=== PATIENT | male | born 2005 | race Caucasian/White ===

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

== ENCOUNTER 2024-02-19 00:32 | Emergency (ER) | payer BC, SELFPAY ==
[2024-02-19 00:32] VITALS: BP 132/93; PULSE 89; RESP 20; TEMP 36.6; O2SAT 100; BMI 32.1
--- NOTE | 2024-02-19 00:35 | ED_ITS ---
Discharge Plan Disposition Patient Disposition: Home, Self-Care Prescriptions Prescriptions: No Action amoxicillin [amoxicillin] 875 mg tablet 875 mg PO Q12H Qty: 20 0RF [id number]-[id number] [Bromfed DM] 2-30-10 mg/5 mL Syrup 5 ml PO Q6H PRN (Reason: Cough) Qty: 240 0RF Referrals Follow up/Referrals: Christian Perales MD [Primary Care Provider] - See instructions Activity Restrictions/Add. Instructions Additional Instructions/Restrictions: Please follow-up with your primary care provider. Please return to the emergency department if you develop any new or worsening symptoms or become concerned for your health. Clinical Impressions Clinical Impression: Headache Qualifiers: Headache chronicity pattern: acute headache Intractability: not intractable Print Language Print Language: Peruvian Discharge ED Provider: Nick Valenzuela General Adult HPI General Chief complaint: Dizziness Stated complaint: nosebleed, tightness in chest, lightheaded Time Seen by Provider: 02/19/24 00:35 History of Present Illness HPI narrative: 18-year-old male without significant past medical history presents for multiple complaints. Symptoms started about 2 and half hours ago. He first noticed some nausea. He then had a unilateral right sided nosebleed with spontaneous resolution. He then developed a headache, dizziness/weakness, chest tightness. He reports that he used to get nosebleeds a lot and his nose has been dry recently. He reports he does get headaches frequently but has not been formally diagnosed with migraines. He denies any other significant past medical history besides scoliosis. No recent fever. Did have a mild URI earlier. Reports headache is occipital, wraps around Related Data Previous Rx's ?Medication ?Instructions ?Recorded amoxicillin 875 mg tablet 875 mg PO Q12H #20 tabs 01/04/23 wrvbjtdjwqwslrv-awkorjagaqbqzob-[id number] 5 ml PO Q6H PRN Cough #240 mL 01/04/23 2 mg-30 mg-10 mg/5 mL oral syrup (Bromfed DM) Allergies Allergy/AdvReac Type Severity Reaction Status Date / Time No Known Allergies Allergy Verified 01/04/23 14:37 [facility] Disclaimer: The information contained in this section may have been updated after the patient was seen, as this information can be updated by other users. Medical History (Updated 02/19/24 @ 01:41 by Luz Elena Cardoso RN) Bronchitis Strep throat Exposure to COVID-19 virus Pharyngitis Sinusitis URI (upper respiratory infection) Canker sore Thumb sprain Viral upper respiratory illness Social History Smoking Status: Never smoker alcohol intake: never current occupational status: student Travel in the last 8 weeks: None Have you lived/traveled outside [place] in past 30 days?: No Contact w/someone who lives/traveled outside [place] past 30 days?: No Exposure to someone with infectious disease in past 14 days?: No Do you have a fever (greater than 100.4 F or 38 C)?: No Have you tested positive for COVID-19: No Exposed to someone with COVID-19 in past 14 days?: No Do you have a sore throat?: No Do you have a cough?: No Do you have any weakness?: Yes Do you have any diarrhea?: No Are you experiencing any unusual bleeding?: Yes Do you have any muscle aches/pain?: No Do you have any abdominal pain?: No Are you experiencing loss of taste or smell?: No ROS Obtained: Yes All systems reviewed & no additional complaints except as documented Physical Exam General General appearance: alert and in no apparent distress Head Head exam: atraumatic and normocephalic Eye Eye exam: Present normal appearance, PERRL and EOMI ENT ENT exam: Present normal oropharynx and normal external ear exam Neck Neck exam: Present normal inspection and full ROM Chest Chest inspection: Present normal inspection and symmetric chest wall rise; Absent tenderness Respiratory Respiratory exam: Present normal lung sounds bilaterally; Absent respiratory distress Cardiovascular Cardiovascular exam: Present regular rate and normal rhythm Abdominal Exam Abdominal exam: Present soft; Absent distention, tenderness or guarding Extremities Exam Extremities exam: Present normal inspection; Absent edema or joint swelling Back Exam Back exam: Present normal inspection; Absent tenderness Neurological Exam Neurological exam: Present alert and oriented X3; Absent motor sensory deficit Psychiatric Psychiatric exam: Present normal affect and normal mood Skin Skin exam: Present warm, dry and normal color Lymphatic Lymphatic Findings: no adenopathy Medical Decision Making Medical Records Medical records reviewed: Yes I reviewed the patient's medical records. Screening: Per USPSTF and CDC recommendations, given the prevalence of disease in our region, it is our hospital?s policy to screen for HIV and viral Hepatitis for all patients aged 18 and over and those with ongoing risk factors. Arnaldo Inquiry Pt receiving controlled substance: No Arnaldo was queried for this patient: No Vital Signs: 02/19/24 00:32 02/19/24 01:00 02/19/24 01:30 Temperature 97.9 F Temperature Source Oral Pulse Rate 85 69 Pulse Rate [Apical] 89 Respiratory Rate 20 15 15 Blood Pressure 124/79 129/81 Blood Pressure [Right Arm] 132/93 H Blood Pressure Mean 94 93 Blood Pressure Mean [Right Arm] 106 02 Sat by Pulse Oximetry 100 97 99 Oxygen Delivery Method Room Air Room Air Room Air Lab Data Lab results reviewed: Yes I reviewed the patient's lab results. Lab Results 02/19/24 00:45: WBC 11.0, RBC 5.51, Hgb 15.6, Hct 45.8, MCV 83.1, MCH 28.2, MCHC 34.0, RDW 13.2, Plt Count 371, MPV 7.2 L, Neut % (Auto) 60.0, Lymph % (Auto) 31.0, [place] % (Auto) 5.9, Eos % (Auto) 2.1, Baso % (Auto) 1.0, Neut # (Auto) 6.6, Lymph # (Auto) 3.4, [place] # (Auto) 0.7, Eos # (Auto) 0.2, Baso # (Auto) 0.1, Sodium 140, Potassium 3.9, Chloride 102, Carbon Dioxide 30, Anion Gap 11.9, BUN 12, Creatinine 0.90, Estimated Creat Clear 212, Estimated GFR 109, Est GFR ( Amer) 132, Glucose 105 H, Calcium 9.1, Total Bilirubin 0.4, AST 39, ALT 44, Alkaline Phosphatase 73, Troponin I < 0.01, Total Protein 8.1, Albumin 4.7, Globulin 3.4 H, Albumin/Globulin Ratio 1.4 02/19/24 00:45 02/19/24 00:45 Orders (Tests/Meds): ED MEDICATIONS Generic Name Dose Route Start Last Admin Trade Name Freq PRN Reason Stop Dose Admin Sodium Chloride 1,000 mls @ 999 mls/hr 02/19/24 00:45 02/19/24 00:51 Sod Chlor 0.9% 1000ml Bag IV 02/19/24 01:45 999 mls/hr .Q1H1M LAKESHIA Administration Discontinued Medications Generic Name Dose Route Start Last Admin Trade Name Daniela PRN Reason Stop Dose Admin Acetaminophen 1,000 mg 02/19/24 00:43 02/19/24 00:51 Acetaminophen 500mg Tab PO 02/19/24 00:44 1,000 mg ONCE ONE Administration Ketorolac Tromethamine 30 mg 02/19/24 00:43 02/19/24 00:52 Ketorolac 30mg/Ml Vial IV 02/19/24 00:44 30 mg ONCE ONE Administration Prochlorperazine Edisylate 10 mg 02/19/24 00:43 02/19/24 00:51 Prochlorperazine 10mg/2ml Vial IV 02/19/24 00:44 10 mg ONCE ONE Administration ORDERS Category Date Time Status CBC w/Auto Diff [Complete Blood Count Auto Diff] Stat Lab 02/19/24 00:45 Completed CMP [Comprehensive Metabolic Panel] Stat Lab 02/19/24 00:45 Completed HIV (1&2) Antibody Rapid Stat Lab 02/19/24 00:45 Received Hep C Ab with Reflex to RNA Stat Lab 02/19/24 00:45 Received Troponin I Stat Lab 02/19/24 00:45 Completed ECG Data Tracing #1: I reviewed this ECG and interpreted as documented below: ECG initial impression date: 02/19/24 ECG initial impression time: 00:42 ECG normal with no acute: arrhythmias, ischemia, conduction abnormalities, chamber hypertrophy HEART Score History (anamnesis): Slightly suspicious ECG: Normal Age: <45 years Risk factors: No known risk factors Troponin: </= normal limit HEART Score: 0 Medical Decision Narrative: 18-year-old male without significant past medical history presents for multiple complaints including headache, nausea, feeling unstable, chest tightness. Also had a self resolving nosebleed.. History was obtained via interactive discussion with patient, family, chart review. On arrival, patient is [afebrile, hemodynamically stable, satting appropriately, alert, oriented x4, GCS 15], moving all extremities spontaneously. Full physical exam performed and significant for no significant physical exam abnormalities, clear lungs bilaterally. Differential includes but is not limited to migraine with aura, tension headache, gastroenteritis, anterior nosebleed, posterior nosebleed. Patient was given migraine cocktail for symptomatic management and correction of underlying abnormalities. Workup initiated including CBC CMP troponin EKG. On re-evaluation, patient [remains afebrile, HD stable.] Reports symptomatic improvement. Given patient history, exam and workup, patient's presentation most likely represents acute headache with associated symptoms. Patient was discharged in stable condition with return precautions. Procedures Risk/Benefits of Procedure(s) Were Explained: Yes Critical Care Critical Care Time Critical Care Time: No
--- NOTE | 2024-02-19 00:41 | ECG_ITS ---
APPROVED REPORT Exam: Resting ECG HR:70 bpm ECG Measurements Heart Rate 70 AXES NC 147 P 39 QRSd 90 QRS 70 QT 338 T 22 QTc 358 Conclusion SINUS RHYTHM WITH SINUS ARRHYTHMIA NORMAL ECG UNCONFIRMED REPORT Electronically signed by : LUIS ANTONIO BALDERAS, 02/21/2024 23:19:28
[2024-02-19 00:50] LABS: Basophils # 0.1 K/mm3 (0-0.2); Eosinophils # 0.2 K/mm3 (0.0-0.4); Eosinophils % 2.1 % (0.1-12.0); Hematocrit 45.8 % (42.0-52.0); Hemoglobin 15.6 g/dL (14.1-18.0); Lymphocytes # 3.4 K/mm3 (0.7-4.5); Mean Corpuscular Hemoglobin 28.2 pg (27.0-31.2); Mean Corpuscular Volume 83.1 fl (80-94); Mean Platelet Volume 7.2 fl (7.4-10.4); Monocytes # 0.7 K/mm3 (0.1-1.0); Monocytes % 5.9 % (1.7-9.3); Neutrophils # 6.6 K/mm3 (1.8-7.8); Platelet Count 371 K/mm3 (142-424); Red Blood Count 5.51 M/mm3 (4.60-6.20); Red Cell Distribution Width 13.2 % (11.5-17.5)
[2024-02-19] MEDS: PROCHLORPERAZINE 10MG/2ML VIAL 10 MG IV (00:51)
[2024-02-19] MEDS: ACETAMINOPHEN 500MG TAB 1000 MG PO (00:51)
[2024-02-19] MEDS: 0.9 % SODIUM CHLORIDE 1000ML 1,000 ML 999 ML IV (00:51)
[2024-02-19] MEDS: KETOROLAC 30MG/ML VIAL 30 MG IV (00:52)
[2024-02-19 00:57] LABS: Alanine Aminotransferase 44 U/L (12-78); Albumin Level 4.7 g/dl (3.5-5.0); Albumin/Globulin Ratio 1.4 (1.1-1.8); Alkaline Phosphatase 73 U/L (38-126); Anion Gap 11.9 mEq/L (5-15); Aspartate Amino Transferase 39 U/L (17-59); Bilirubin,Total 0.4 mg/dl (0.2-1.3); Blood Urea Nitrogen 12 mg/dl (9-20); Calcium 9.1 mg/dl (8.4-10.2); Carbon Dioxide 30 mmol/L (22.0-30.0); Chloride 102 mmol/L (98-107); Creatinine Clearance Estimated 212 mL/min (50-200); Estimated Glomerular Filt Rate 109 ml/min (>60); GFR (African American) 132 ML/MIN (>60); Globulin 3.4 g/dL (1.3-3.2); Glucose 105 mg/dl (74-100); Potassium 3.9 mmoL/L (3.5-5.1); Sodium 140 mmol/L (136-145); Total Protein,Serum 8.1 g/dl (6.3-8.2)
[2024-02-19 01:00] VITALS: BP 124/79; PULSE 85; RESP 15; O2SAT 97
[2024-02-19 01:11] LABS: Troponin I < 0.01 ng/ml (0.00-0.034)
[2024-02-19 01:30] VITALS: BP 129/81; PULSE 69; RESP 15; O2SAT 99
[2024-02-19 01:40] VITALS: BP 129/81; PULSE 93; RESP 20; TEMP 36.6; O2SAT 98
[2024-02-19 14:16] LABS: HIV Combo POSITIVE (Negative)
[2024-02-20 08:17] LABS: HCV Ab Non Reactive (Non Reactive)
[2024-02-23 16:20] LABS: HIV Combo Retest Negative (Negative)
== END 2024-02-19 01:41 | disposition home or self-care (01) ==
PROVIDERS: Emergency Provider Emergency Medicine; PCP Family Medicine
DX: G43.909 Migraine, unspecified, not intractable, without status migrainosus (principal); R04.0 Epistaxis; R53.83 Other fatigue; R42 Dizziness and giddiness; R07.89 Other chest pain
CPT/HCPCS: 80053; 84484; 85025; 86803; 87389; 93005; 96361; 96374; 96375; 99284; J0780; J1885; J7030